=== PATIENT | female | born 1985 | race Caucasian/White ===

== ENCOUNTER 2016-10-02 12:27 | Emergency (ER) | payer OTHER ==
[2016-10-02 13:35] VITALS: BP 122/76
--- NOTE | 2016-10-02 14:05 | UC ---
Hip/Pelvis Pain - HPI Summary HPI Summary: Patient was hiking yesterday, took a large step and felt a severe sharp pain in the left groin. was unable to left leg appropriately and cannot place full weight on left leg, - History Of Current Complaint Chief Complaint: UCAbdominalPain Stated Complaint: GROIN PAIN Time Seen by Provider: 10/02/16 13:48 Hx Obtained From: Patient Hx Last Menstrual Period: 09/23/16 Onset/Duration: Sudden Onset, Lasting Hours Timing: Constant Severity Initially: Severe Severity Currently: Severe Pain Intensity: 9 Pain Scale Used: 0-10 Numeric Location: Discrete At: - left inguinal canal Character Of Pain: Sharp, Throbbing Aggravating Factor(s): Movement, Weight Bearing Alleviating Factor(s): Rest, Cold Associated Signs And Symptoms: Positive: Swelling, Other - lump - Risk Factors Septic Arthritis Risk Factor: Negative - Allergies/Home Medications Allergies/Adverse Reactions: Allergies Allergy/AdvReac Type Severity Reaction Status Date / Time No Known Allergies Allergy Verified 10/02/16 13:35 Home Medications: Home Medications Naproxen [Naproxen EC] 250 mg PO DAILY 10/02/16 [History Confirmed 10/02/16] PMH/Surg Hx/FS Hx/Imm Hx Previously Healthy: Yes - Surgical History Surgical History: Yes Surgery Procedure, Year, and Place: plastic surgery left arm 1988 d/t arm going through glass door - Family History Known Family History: Positive: None Negative: Hypertension - Social History Alcohol Use: None Substance Use Type: None Smoking Status (MU): Never Smoked Tobacco Review of Systems Constitutional: Negative Skin: Negative Eyes: Negative ENT: Negative Respiratory: Negative Cardiovascular: Negative Gastrointestinal: Negative Genitourinary: Negative Motor: Negative Neurovascular: Negative Musculoskeletal: Decreased ROM, Edema, Myalgia, Other: - abnormal gait Neurological: Negative Psychological: Negative All Other Systems Reviewed And Are Negative: Yes Physical Exam Triage Information Reviewed: Yes Appearance: Well-Appearing, Well-Nourished, Pain Distress Vital Signs: Initial Vital Signs Temp 98.7 F 10/02/16 13:24 Pulse 92 10/02/16 13:24 Resp 18 10/02/16 13:24 BP 122/76 10/02/16 13:24 Vital Signs Reviewed: Yes Eye Exam: Normal Eyes: Positive: Conjunctiva Clear ENT Exam: Normal ENT: Positive: Normal ENT inspection, Hearing grossly normal, Pharynx normal Dental Exam: Normal Neck exam: Normal Neck: Positive: Supple, Nontender, No Lymphadenopathy Respiratory Exam: Normal Respiratory: Positive: Chest non-tender, Lungs clear, Normal breath sounds Cardiovascular Exam: Normal Cardiovascular: Positive: RRR, No Murmur, Pulses Normal Abdomen Description: Positive: No Organomegaly, Hernia @ - left inguinal canal, Other: - abdomen is soft, nondistended, no rebound tenderness, palpation of left groin, painful lump noted Bowel Sounds: Positive: Present Musculoskeletal: Positive: Strength Limited @ - left leg, ROM Limited @ - left hip flx and ext Neurological Exam: Normal Neurological: Positive: Alert, Muscle Tone Normal Psychological Exam: Normal Skin Exam: Normal Hip Injury Course/Dx - Course Course Of Treatment: history obtained, exam performed, ice applied, unable to attempt reduction due to pain. - Differential Dx/Diagnosis Differential Diagnosis/HQI/PQRI: Contusion, Dislocation, Sprain, Strain Provider Diagnoses: left inguinal pain,. hernia. abnormal gait - Physician Notification/Consults Discussed Patient Care With: dr Scott [facility] ER Instructed by Provider To: Will See In ED Discharge - Discharge Plan Condition: Stable Disposition: [facility]
== END 2016-10-02 14:15 | disposition left against medical advice (07) ==
LOC: UCCORT 12:27
DX: R10.9 Unspecified abdominal pain (principal); K46.9 Unspecified abdominal hernia without obstruction or gangrene; R26.9 Unspecified abnormalities of gait and mobility
CPT/HCPCS: 99213; G0463

== ENCOUNTER 2017-09-28 15:01 | Emergency (ER) | payer OTHER ==
[2017-09-28 17:01] VITALS: BP 127/81
--- NOTE | 2017-09-28 17:28 | UC ---
Upper Extremity HPI - HPI Summary HPI Summary: right arm pain x 2 weeks s/p rotator cuff surgery 9 months ago , been having right arm pain , some tightness at the right elbow no redness, no swelling - History of Current Complaint Chief Complaint: UCUpperExtremity Stated Complaint: RIGHT ARM INJURY Time Seen by Provider: 09/28/17 16:52 Hx Obtained From: Patient Hx Last Menstrual Period: 09/03/17 ?: No Onset/Duration: Gradual Onset, Lasting Weeks - 2 weeks, Still Present Pain Intensity: 4 Pain Scale Used: 0-10 Numeric Location Of Pain: Is Discrete @ - right arm Character: Aching, Stiffness Aggravating Factor(s): Movement, Lifting, Flexion, Extension Alleviating Factor(s): Nothing Associated Signs And Symptoms: Positive: Numbness/Tingling - right arm. Negative: Swelling, Redness, Bruising, Fever, Weakness - Allergies/Home Medications Allergies/Adverse Reactions: Allergies Allergy/AdvReac Type Severity Reaction Status Date / Time surgical tape Allergy Rash Uncoded 09/28/17 17:02 Home Medications: Home Medications ALPRAZolam TAB* [Xanax TAB*] 0.25 mg PO Q8H PRN 09/28/17 [History Confirmed ] PARoxetine HCL TAB* [Paxil TAB*] 10 mg PO DAILY 09/28/17 [History Confirmed ] PMH/Surg Hx/FS Hx/Imm Hx Previously Healthy: Yes - Surgical History Surgical History: Yes Surgery Procedure, Year, and Place: plastic surgery left arm 1988 d/t arm going through glass door, right rct 2016 - Family History Known Family History: Positive: None Negative: Hypertension - Social History Alcohol Use: None Substance Use Type: None Smoking Status (MU): Never Smoked Tobacco Review of Systems Constitutional: Negative Skin: Negative Eyes: Negative ENT: Negative Respiratory: Negative Is Patient Immunocompromised?: No All Other Systems Reviewed And Are Negative: Yes Physical Exam Triage Information Reviewed: Yes Appearance: Well-Appearing, No Pain Distress, Well-Nourished Vital Signs: Initial Vital Signs Temp 99.2 F 09/28/17 16:47 Pulse 99 09/28/17 16:47 Resp 20 09/28/17 16:47 BP 127/81 09/28/17 16:47 Vital Signs Reviewed: Yes Eyes: Positive: Conjunctiva Clear ENT: Positive: Normal ENT inspection, Hearing grossly normal, Pharynx normal, Pharyngeal erythema Neck: Positive: Supple, Nontender, No Lymphadenopathy Respiratory Exam: Normal Respiratory: Positive: Chest non-tender, Lungs clear, Normal breath sounds Cardiovascular: Positive: RRR, No Murmur, Pulses Normal Musculoskeletal: Positive: Other: - right arm : no swelling, no erythema, good ROM on flexion and extension , + pain with flexion and extension , + tenderness at the elbow Upper Extremity Course/Dx - Differential Dx/Diagnosis Provider Diagnoses: right arm pain Discharge - Discharge Plan Condition: Stable Disposition: HOME Patient Education Materials: Arm Pain (ED) Referrals: Hannah Rogers MD [Primary Care Provider] - Additional Instructions: follow up with your orthopedics on Sunday arm sling for comfort
== END 2017-09-28 17:21 | disposition home or self-care (01) ==
LOC: UCCORT 15:01
DX: M25.531 Pain in right wrist (principal); Z98.890 Other specified postprocedural states; Z91.048 Other nonmedicinal substance allergy status
CPT/HCPCS: 99212; G0463

== ENCOUNTER 2018-01-07 06:31 | Day surgery (SDC) | payer OTHER ==
[~2018-01-07 06:31] MED LIST: Buffered Lidocaine 0.9% SYRIN* 5 ML/SYR SYRINGE INTRADERM ONE; DiMENhydriNATE IV* 50 MG/ML VIAL IV PUSH PRN; Famotidine TAB* 20 MG ONE; Famotidine TAB* 20 MG PO ONE; Gabapentin CAP(*) 300 MG ONE; Gabapentin CAP(*) 300 MG PO ONE; Morphine INJ* 2 MG/ML 1 ML CARPUJECT IV PRN; Naloxone* 0.4 MG/ML 1 ML VIAL IV PRN; PROCHLORPERAZINE INJ 5 MG/ML 2 ML VIAL IV PRN; Scopolamine 1.5 mg* PATCH ONE; Scopolamine 1.5 mg* PATCH TRANSDERM ONE; fentaNYL* 50 MCG/ML 2 ML VIAL (100 MCG VIAL) IV PRN; oxyCODONE/Acetamin 5/325 MG* TAB PO PRN
[2018-01-07] MEDS ORDERED: ceFAZolin 2 GM PREMIX (*) 2 GM/50 ML BAG IVPB ONE (06:42)
[2018-01-07] MEDS ORDERED: Bupivacaine 0.25% SDV* 30 ML ONE ×2 (06:56→06:57)
[2018-01-07] MEDS ORDERED: fentaNYL* 50 MCG/ML 2 ML VIAL (100 MCG VIAL) ONE ×2 (06:59→08:45)
[2018-01-07] MEDS ORDERED: Midazolam* 1 MG/ML 5 ML VIAL (5 MG) ONE (07:00)
[2018-01-07] MEDS ORDERED: Ondansetron INJ* 2 MG/ML VIAL ONE (08:30)
[2018-01-07] MEDS ORDERED: PROCHLORPERAZINE INJ 5 MG/ML 2 ML VIAL ONE (08:30)
[2018-01-07] MEDS ORDERED: Lidocaine 2% PF * 5 ML VIAL ONE (08:30)
[2018-01-07] MEDS ORDERED: Ketorolac INJ* 30 MG/ML 1 ML VIAL ONE (08:30)
[2018-01-07] MEDS ORDERED: Dexamethasone IV* 4 MG/ML 1 ML (4 MG) ONE (08:30)
[2018-01-07] MEDS ORDERED: Propofol* 10 MG/ML 20 ML BTL IV PUSH ONE (08:30)
[2018-01-07 10:44] VITALS: BP 106/66
--- NOTE | 2018-01-07 13:06 | OP ---
OPERATIVE REPORT: DATE OF OPERATION: 01/07/18 DATE OF : 81 SURGEON: Raffaele Pichardo MD. MORTAR CARRIER: JALEESA Gamboa. ANESTHESIOLOGIST: Dr. Watkins. ANESTHESIA: General; interscalene block. PRE-OP DIAGNOSIS: Right shoulder possible retear of a rotator cuff repair with biceps tendinitis and symptomatic hardware. POST-OP DIAGNOSIS: Full thickness retear of the rotator cuff. OPERATIVE PROCEDURES: Right shoulder arthroscopy with: 1. Glenohumeral debridement. 2. Revision rotator cuff repair, double-row. 3. Subpectoral biceps tenodesis. 4. Revision subacromial decompression with acromioplasty. 5. Removal of deep suture in fascia through a separate incision. COMPLICATIONS: None. ESTIMATED BLOOD LOSS: Minimal. IMPLANTS USED: Two 4.75 Healicoil, two MultiFIX and one 2.8-mm Q-Fix. INDICATIONS: Alena Jordan is a 32-year-old female who underwent previous rotator cuff repair by Dr. Victor about a year ago. She has had persistent issues since that time and had persistent pain. She was seeing me for a second opinion and we determined that she had a partial thickness tear but was unable to determine if it was a full thickness tear. We talked about the risks and benefits of surgery versus nonoperative treatment. Risks included but are not limited to, bleeding, infection, damage to nerves, vessels, surrounding structures, wound nonhealing, persistent pain, need for further surgery, scarring, stiffness, incomplete relief of symptoms and risk of anesthesia. DESCRIPTION OF PROCEDURE: The patient was greeted in the preoperative area by the attending surgeon. The correct extremity was marked and consent was confirmed. She underwent interscalene nerve block by the anesthesiologist, after which she was then brought back to the operating suite, she was placed in the supine position on the operating table. She underwent general anesthesia with endotracheal intubation. She was then placed in the left lateral decubitus position with bony prominences padded. She was secured with a peg board. The right shoulder was then prepped and draped in the usual sterile fashion beginning with chlorhexidine soap, scrub and alcohol wipe and a final prep with Betadine due to possible CHLORAPREP allergy. The right shoulder was draped in 10 pounds of traction unsterile. After appropriate surgical pause indicating side, site, and procedure and administration of antibiotics, the standard posterolateral portal was made sharply with an 11-blade. Scope was introduced into the joint and the joint was examined. There were grade 0 changes to the glenohumeral joint. The inferior recess was intact but the anterior posterior labrum had mild fraying, there was evidence of disruption of the rotator cable and a high-grade partial thickness tear. The superior labrum had some mild fraying with type 1 superior labral tear but the biceps was taken through range of motion. She had abundant synovitis along the groove and based on preoperative stiffness it was determined to do a biceps tenodesis. The subscap was intact. The rotator cuff was then marked using an 0 PDS suture. The suture quality was quite poor. The scope was positioned in the subacromial space. There was evidence of full thickness tear that was present at this point. The sutures had come undone. Superior to it had been a PASTA type repair or rather a suture tape that was placed into the lateral anchor. The suture was then cut and carefully removed. The rotator cuff was then prepared and debrided back to find good, well bleeding tissue. The greater tuberosity was then skeletonized using electrocautery device. At this point, attention was directed to the acromioplasty. There was abundant scar that had built up under the distal suture including under the deltoid and this was carefully released using electrocautery device to preserve the deltoid muscle and the deltoid insertion. A 4-0 oval marco a was used to do a revision decompression and there was still a spur that was present. All fluid and debris was removed and attention was directed to the rotator cuff. The 4-0 oval marco a was used to decorticate the greater tuberosity. Two anchors were placed through separate stab incisions, 4.75 Healicoil was placed with excellent purchase. She had very good quality bone. These sutures were then passed through the tendon in a horizontal mattress configuration. They were then tied down. The anterior strand of each anchor was then passed through and a MultiFIX suture was placed on the lateral border anteriorly and the remaining sutures were passed through another MultiFIX anchor which were then placed posteriorly but laterally. This allowed for excellent presybeterian of the rotator cuff as well as compression of the footprint. Final images were obtained and attention was directed to the next portion. A 15-blade was used to make a separate incision over her previous deltoid incision. Approximately 2 cm of the distal aspect of the incision was exposed. The soft tissues were carefully dissected to expose the symptomatic suture that was present. This appeared to be a white, nonabsorbable suture. This was then carefully removed in its entirety with care to not disrupt the deltoid fibers. Again this was removed through a separate incision. Attention was directed to the biceps. The bed was air planed to the right side. The anterior aspect of the shoulder was prepped again using alcohol. The 15 blade was used to make an incision in line with the biceps tendon and cut through the inferior two thirds of the pec. The soft tissue was carefully dissected and the pec was identified and then elevated. Remainder of the dissection was done bluntly. Biceps was then brought through the groove. There was abundant erythema and irritation proximally along the biceps. The groove was then prepared in the usual fashion using the electrocautery device, the red ball rasp as well as the osteotome. This allowed for good bony bleeding bed. The Q-Fix guide was then used to drill unicortically and the Q- Fix was deployed with excellent purchase. Sutures were then passed through the tendon in a Eric-Galdino type configuration. The excess stump was then excised and then the biceps was then shoveled into the wound. Wounds were copiously irrigated with sterile saline. All the wounds were copiously irrigated. The anterior wound was closed in layers with 2-0 Vicryl and 3-0 Monocryl. The remaining portal incisions were closed with 3-0 nylon in an interrupted fashion. Final dressings were applied. The anterior wound was injected with 20 cc of 0.25% Marcaine plain. Cryo/Cuff and UltraSling were placed . She was then awoken from anesthesia and transferred to PACU in stable condition. POSTOPERATIVE PLAN: She will be nonweightbearing. She will be in the sling for 6 weeks. She will be discharged on pain medications and antibiotics. Physical therapy will start at 4 weeks. DVT prophylaxis was considered, but deferred due to no previous personal or family history. I will see the patient back in about 14 days. [id number]/[facility] #: [id number] MTDD
[2018-01-08] MEDS ORDERED: Scopolamine PATCH Remove* 1 NOTE MISC PATCH OFF ONE (06:00)
== END 2018-01-07 10:37 | disposition home or self-care (01) ==
LOC: OREAST 06:31
PROVIDERS: ATTEND Orthopaedic Surgery
DX: S46.011D Strain of muscle(s) and tendon(s) of the rotator cuff of right shoulder, subsequent encounter (principal); M75.21 Bicipital tendinitis, right shoulder; F41.9 Anxiety disorder, unspecified; Z79.899 Other long term (current) drug therapy; X58.XXXD Exposure to other specified factors, subsequent encounter; G89.18 Other acute postprocedural pain
CPT/HCPCS: 81025; A9270-GY; C1713; C1776; J0690; J0780; J1100; J1885; J2250; J2405; J2704; J3010

== ENCOUNTER 2018-06-05 21:02 | Emergency (ER) | payer MEDICAID, OTHER ==
[2018-06-05 22:02] VITALS: BP 113/63
[2018-06-05] MEDS ORDERED: Ibuprofen TAB* 600 MG PO ONE (22:28)
--- NOTE | 2018-06-05 22:30 | UC ---
Lower Extremity/Ankle HPI - HPI Summary HPI Summary: 32 year old female here with a complaint of right foot pain. Pain started this morning while walking. No known other trauma. The top of the midfoot is most painful. Walking and weightbearing makes it worse. Rest improves it. She has not been wearing any new shoes. No new activities. - History of Current Complaint Chief Complaint: UCLowerExtremity Stated Complaint: RIGHT FOOT INJURY Time Seen by Provider: 06/05/18 21:58 Hx Last Menstrual Period: 05/16/18 Pain Intensity: 6 - Allergies/Home Medications Allergies/Adverse Reactions: Allergies Allergy/AdvReac Type Severity Reaction Status Date / Time surgical tape Allergy Rash Uncoded 06/05/18 21:53 PMH/Surg Hx/FS Hx/Imm Hx Previously Healthy: Yes - Surgical History Surgical History: Yes Surgery Procedure, Year, and Place: plastic surgery left arm 1988 d/t arm going through glass door, right rct 2017 -[facility]ICE - Family History Known Family History: Positive: None Negative: Hypertension - Social History Alcohol Use: None Substance Use Type: None Smoking Status (MU): Former Smoker Amount Used/How Often: SOCIAL X 5-6 YRS When Did the Patient Quit Smoking/Using Tobacco: 2011 Review of Systems Constitutional: Negative Skin: Other - There is some erythema on top of the right foot Eyes: Negative ENT: Negative Respiratory: Negative Cardiovascular: Negative Gastrointestinal: Negative Motor: Other - Pain with range of motion of the right foot Neurovascular: Negative Musculoskeletal: Other: - See history of present illness Neurological: Negative Psychological: Negative Is Patient Immunocompromised?: No All Other Systems Reviewed And Are Negative: Yes Physical Exam Triage Information Reviewed: Yes Appearance: Well-Appearing, No Pain Distress, Well-Nourished Vital Signs: Initial Vital Signs Temp 98 F 06/05/18 21:54 Pulse 79 06/05/18 21:54 Resp 18 06/05/18 21:54 BP 113/63 06/05/18 21:54 Pulse Ox 100 06/05/18 21:54 Vital Signs Reviewed: Yes Eye Exam: Normal Eyes: Positive: Conjunctiva Clear Neck exam: Normal Neck: Positive: Supple Respiratory: Positive: No respiratory distress Musculoskeletal: Positive: Other: - Right foot is tender in the midfoot. The ankle is nontender. Normal capillary refill normal pulses no sensation deficit. No skin break. Neurological Exam: Normal Neurological: Positive: Alert, Muscle Tone Normal Psychological Exam: Normal Psychological: Positive: Normal Response To Family, Age Appropriate Behavior Skin: Positive: Other - There is an area of erythema on the dorsum of the midfoot Lower Extremity Course/Dx - Course Course Of Treatment: Review the x-rays with the patient. I do not see any fracture on x-ray. Radiologist reading is pending. The plan is Jabari wrap and a postop shoe and follow-up with her primary care doctor. - Differential Dx/Diagnosis Provider Diagnoses: Right foot sprain Discharge - Sign-Out/Discharge Documenting (check all that apply): Patient Departure All imaging exams completed and their final reports reviewed: No - Discharge Plan Condition: Stable Disposition: HOME Patient Education Materials: Foot Sprain (ED) Referrals: Jaiden Jordan MD [Primary Care Provider] - Additional Instructions: FOLLOW UP WITH YOUR DOCTOR. GET RECHECKED FOR ANY WORSENING OF YOUR CONDITION OR QUESTIONS OR CONCERNS. - Billing Disposition and Condition Condition: STABLE Disposition: Home
--- NOTE | 2018-06-06 07:29 | RAD ---
INDICATION: Right foot injury. TECHNIQUE: 3 views of the right foot were obtained. FINDINGS: The bones are in normal alignment. No fracture is seen. Joint spaces appear maintained. IMPRESSION: NO EVIDENCE FOR FRACTURE. R0
--- NOTE | 2018-06-06 20:43 | UC ---
- Progress Note Progress Note: Patient Name: CYNDI MURPHY Medical Record#: [id number] Ordering Physician: Matty Oakley MD Acct.#: [id number] : 1985 Age: 32 Sex: F Location: [facility] Exam Date: 06/05/182199 ADM Status: [facility] ER Order Information: FOOT RIGHT 3+ VWS Accession Number: [id number] CPT: 55898 INDICATION: Right foot injury. TECHNIQUE: 3 views of the right foot were obtained. FINDINGS: The bones are in normal alignment. No fracture is seen. Joint spaces appear maintained. IMPRESSION: NO EVIDENCE FOR FRACTURE. R0 <Electronically signed by Ahmet Priest MD in OV> 06/06/18725 Dictated By: Ahmet Priest MD Dictated Date/Time: 06/06/18725 Transcribed Date/Time: 06/06/18723 Copy to: CC:Jaiden Jordan MD; Matty Oakley MD Imaging - [facility] Imaging - [facility] [place] [address] [address] ph ([phone]) ph ([phone]) ph ([phone]) This report is only to be considered final once signed by the Provider(s) as displayed in the "<Electronically Signed by >" field (s). Absence of a signature indicates the report is in a draft status and still needs to be finalized. In the event this document was created by someone other than the signing Provider, the individual initiating the document will be listed in the "Entered by:" or "Dictated by:" ramirez. 1 of 1 Discharge - Sign-Out/Discharge Documenting (check all that apply): Post-Discharge Follow Up All imaging exams completed and their final reports reviewed: Yes - Discharge Plan Condition: Stable Disposition: HOME Patient Education Materials: Foot Sprain (ED) Referrals: Jaiden Jordan MD [Primary Care Provider] - Additional Instructions: FOLLOW UP WITH YOUR DOCTOR. GET RECHECKED FOR ANY WORSENING OF YOUR CONDITION OR QUESTIONS OR CONCERNS. - Billing Disposition and Condition Condition: STABLE Disposition: Home
== END 2018-06-05 22:42 | disposition home or self-care (01) ==
LOC: UCCORT 21:02
DX: S93.601A Unspecified sprain of right foot, initial encounter (principal); X58.XXXA Exposure to other specified factors, initial encounter; Y93.01 Activity, walking, marching and hiking; Y92.9 Unspecified place or not applicable; Z91.048 Other nonmedicinal substance allergy status; Z87.891 Personal history of nicotine dependence
CPT/HCPCS: 99213; A9270-GY; G0463

== ENCOUNTER 2018-09-16 18:10 | Emergency (ER) | payer OTHER ==
--- OUTSIDE RECORDS SUMMARY | 2018-09-16 18:17 | XMS REPORT | Continuity of Care Document ---
:1985 External Reference #:[id number] Author Name Ammon Sorensen Care Team Providers Name Role Phone Jaiden Jordan M.D. Primary Care Physician Unavailable Payers Type Date Identification Numbers Payment Provider Subscriber Policy Number: [id number] Marshal Jordan PayID: [id number] [address] [place] [address] Advance Directives Description No Information Available Problems Date Description Provider Status Onset: 12/13/2017 Injury of shoulder region Raffaele Pichardo MD Active Onset: 12/13/2017 Disorder of shoulder Raffaele Pichardo MD Active Onset: 05/02/2018 Adhesive capsulitis of shoulder Raffaele Pichardo MD Active Family History Description No Information Available Social History Type Date Description Comments Sex Unknown Lives With Son Occupation Unemployed ETOH Use Denies alcohol use Tobacco Use Start: Unknown Patient has never smoked Smoking Status Reviewed: 08/29/18 Patient has never smoked Exercise Type/Frequency Exercises regularly Allergies, Adverse Reactions, Alerts Description No Known Drug Allergies Medications Medication Date Status Form Strength Qnty SIG Indications Ordering Provider Medrol 08/29/ Active TBPK 4mg 21unit take as S46.011D Raffaele 2017 s lucien Alexander MD packaging Alprazolam / Active Tablets 0.25mg one by Unknown 0000 mouth up to three times daily as needed for anxiety Paroxetine HCL / Active Tablets 10mg 1 by mouth Unknown 0000 every day Gabapentin / Active Capsules 300mg 1 cap by Unknown 0000 mouth in the am and 2 caps by mouth in the evening Acetaminophen-Cod / Active Tablets 300-15mg take one Unknown eine #2 0000 tab every 4-6 hours as needed for pain Medrol 05/02/ Hx TBPK 4mg 21unit take as S46.011D Raffaele 2018 - s directed Kylee, 06/02/ by 2017 packaging Cyclobenzaprine 01/22/ Hx Tablets 10mg 30tabs take 1 tab S46.011D Zaneb HCL 2017 - at night Kylee, 02/19/ as needed 2017 for pain/muscl e spasms Oxycodone HCL 01/07/ Hx Tablets 5mg 40tabs 1-2 tabs Zaneb 2018 - by mouth Kylee, 02/19/ every 4-6 MD 2017 hours as needed Cephalexin 01/07/ Hx Tablets 500mg 12tabs take 1 by Raffaele 2017 - mouth four Kylee, 02/19/ times a 2017 day x 3 days Oxycodone HCL / Hx Capsules 5mg 1-2 tabs Unknown 0000 - by mouth 01/07/ every 4-6 2017 hours as needed pain Hydrocodone-Aceta / Hx Tablets 5-325mg 1 or 2 Unknown minophen 0000 - tabs by 01/22/ mouth 2018 every 6-8 hours as needed for pain Medications Administered in Office Medication Date Status Form Strength Qnty SIG Indications Ordering Provider Records Fee 05/15/20 Administered Injection Raffaele Pichardo MD Immunizations Description No Information Available Vital Signs Date Vital Result Comment 08/29/2018 11:06am Height 65 inches 5'5" Heart Rate 78 /min BP Systolic Sitting 108 mmHg BP Diastolic Sitting 78 mmHg Pain Level 8 06/27/2018 10:55am Height 65 inches 5'5" Weight 130.00 lb BP Systolic 112 mmHg BP Diastolic 64 mmHg Respiratory Rate 18 /min Pain Level 6 BMI (Body Mass Index) 21.6 kg/m2 05/02/2018 1:18pm Height 65 inches 5'5" Weight 130.00 lb BP Systolic 110 mmHg BP Diastolic 70 mmHg Respiratory Rate 18 /min Pain Level 3 BMI (Body Mass Index) 21.6 kg/m2 04/12/2018 10:46am Height 65 inches 5'5" Weight 130.00 lb BP Systolic 118 mmHg BP Diastolic 74 mmHg Respiratory Rate 18 /min Pain Level 8 BMI (Body Mass Index) 21.6 kg/m2 02/19/2018 10:07am Height 65 inches 5'5" Weight 130.00 lb BP Systolic 110 mmHg BP Diastolic 70 mmHg Respiratory Rate 18 /min Pain Level 1 BMI (Body Mass Index) 21.6 kg/m2 01/22/2018 1:05pm Height 65 inches 5'5" Weight 130.00 lb Heart Rate 103 /min 66 Respiratory Rate 16 /min Body Temperature 97.7 F Pain Level 4 BMI (Body Mass Index) 21.6 kg/m2 12/20/2017 11:37am Height 65 inches 5'5" Weight 130.00 lb Heart Rate 68 /min BP Systolic Sitting 100 mmHg BP Diastolic Sitting 64 mmHg Respiratory Rate 16 /min Pain Level 7 BMI (Body Mass Index) 21.6 kg/m2 12/13/2017 1:10pm Height 65 inches 5'5" Weight 130.00 lb Heart Rate 84 /min Respiratory Rate 16 /min Body Temperature 98.1 F Pain Level 7 BMI (Body Mass Index) 21.6 kg/m2 Results Description No Information Available Procedures Date Code Description Status 01/07/2018 41225 Arthroscopy Shoulder,W/Rotator Cuff Repair Completed 01/07/2018 80571 Arthroscopy Shoulder,W/Rotator Cuff Repair Completed 01/07/2018 12720 Arthroscopy,Shoulder Decompression Of Subacromial Space Completed W/Acromio 01/07/2018 31568 Arthroscopy,Shoulder Decompression Of Subacromial Space Completed W/Acromio 01/07/2018 53490 Tenodesis Biceps Long Tendon Completed 01/07/2018 98791 Tenodesis Biceps Long Tendon Completed 01/07/2018 86443 Remove Foreign Body Muscle/Tendon Sheath Simple Completed 01/07/2018 57819 Remove Foreign Body Muscle/Tendon Sheath Simple Completed Encounters Type Date Location Provider Dx Diagnosis Office Visit 06/27/2018 Orthopedic Raffaele Pichardo MD S46.011D Strain of 10:[facility]a [facility] the rotator cuff of right shoulder, subs S46.101D Unsp injury of maria g/fasc/tend long hd bicep, right arm, subs M75.01 Adhesive capsulitis of right shoulder Office Visit 05/02/2018 1:30p Orthopedic Raffaele Pichardo S46.011D Strain of [facility] rotator cuff of right shoulder, subs S46.101D Unsp injury of maria g/fasc/tend long hd bicep, right arm, subs M75.01 Adhesive capsulitis of right shoulder Office Visit 04/12/2018 10:45a Orthopedic Zaneb Yaseen, S46.011D Strain of [facility] rotator cuff of right shoulder, subs S46.101D Unsp injury of musc/fasc/tend long hd bicep, right arm, subs S46.111D Strain of musc/fasc/tend long hd bicep, right arm, subs Office Visit 12/20/2017 11:30a Orthopedic Raffaele Pichardo, S46.011D Strain of [facility] rotator cuff of right shoulder, subs S46.101A Unsp injury of musc/fasc/tend long hd bicep, right arm, init S46.111D Strain of musc/fasc/tend long hd bicep, right arm, subs Office Visit 12/13/2017 1:00p Orthopedic Raffaele Pichardo, S46.011D Strain of [facility] rotator cuff of right shoulder, subs S46.101A Unsp injury of musc/fasc/tend long hd bicep, right arm, init M54.12 Radiculopathy, cervical region S46.111A Strain of musc/fasc/tend long hd bicep, right arm, init S46.011A Strain of tessy the rotator cuff of right shoulder, init Plan of Treatment Future Appointment(s):10/10/2018 10:45 am - Raffaele Pichardo MD at [facility]08/29/2018 - Raffaele Pichardo MDS46.011D Strain of muscle(s) and tendon(s) of the rotator cuff of rigNew Medication:Medrol 4 mg - take as directed by packagingNew Therapy:Physical TherapyFollow up:Follow up: 6 ikuutK82.101D Unspecified injury of muscle, fascia and tendon of long head
[2018-09-16 19:00] VITALS: BP 116/89
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
== END 2018-09-16 19:27 | disposition home or self-care (01) ==
LOC: UCCORT 18:10
DX: S01.81XD Laceration without foreign body of other part of head, subsequent encounter (principal); X58.XXXD Exposure to other specified factors, subsequent encounter; Z51.89 Encounter for other specified aftercare; Z87.891 Personal history of nicotine dependence
CPT/HCPCS: 99212; G0463

== ENCOUNTER 2019-01-07 08:55 | Emergency (ER) | payer OTHER ==
[2019-01-07 09:18] VITALS: BP 110/67
--- NOTE | 2019-01-07 09:35 | UC ---
Throat Pain/Nasal Ajay HPI - HPI Summary HPI Summary: sore throat x 3 weeks no fever, no chills, denies any cold symptoms no pnd, no cough , ? burned the back of her throat by eating something hot - History of Current Complaint Chief Complaint: UCGeneralIllness Stated Complaint: ST Time Seen by Provider: 01/07/19 09:28 Hx Obtained From: Patient Hx Last Menstrual Period: 12/22/18 Onset/Duration: Gradual Onset, Lasting Weeks - 3, Still Present Severity: Moderate Pain Intensity: 5 Cough: None Associated Signs & Symptoms: Negative: Drooling, Wheezing, Hoarseness, Sinus Discomfort, Nasal Discharge, Fever, Vomiting - Allergies/Home Medications Allergies/Adverse Reactions: Allergies Allergy/AdvReac Type Severity Reaction Status Date / Time surgical tape Allergy Rash Uncoded 11/11/18 10:12 PMH/Surg Hx/FS Hx/Imm Hx Psychological History: Anxiety - Surgical History Surgical History: Yes Surgery Procedure, Year, and Place: plastic surgery left arm 1988 d/t arm going through glass door, right rct 2016,2017 -TWICE - Family History Known Family History: Positive: None Negative: Hypertension - Social History Alcohol Use: None Substance Use Type: None Smoking Status (MU): Never Smoked Tobacco Amount Used/How Often: SOCIAL X 5-6 YRS When Did the Patient Quit Smoking/Using Tobacco: 2011 - Immunization History Most Recent Tetanus Shot: 09/10/18 Review of Systems All Other Systems Reviewed And Are Negative: Yes Constitutional: Positive: Negative Skin: Positive: Negative Eyes: Positive: Negative ENT: Positive: Sore Throat Respiratory: Positive: Negative Cardiovascular: Positive: Negative Is Patient Immunocompromised?: No Physical Exam Triage Information Reviewed: Yes Appearance: Well-Appearing, No Pain Distress, Well-Nourished Vital Signs: Initial Vital Signs Temp 98.4 F 01/07/19 09:12 Pulse 67 01/07/19 09:12 Resp 16 01/07/19 09:12 BP 110/67 01/07/19 09:12 Pulse Ox 100 01/07/19 09:12 Vital Signs Reviewed: Yes Eye Exam: Normal Eyes: Positive: Conjunctiva Clear ENT: Positive: Normal ENT inspection, Hearing grossly normal, Pharynx normal, TM bulging. Negative: Pharyngeal erythema, Nasal congestion, Nasal drainage, TMs normal, Tonsillar swelling, Tonsillar exudate Neck: Positive: Supple, Nontender, No Lymphadenopathy Respiratory: Positive: Chest non-tender, Lungs clear, Normal breath sounds Cardiovascular: Positive: RRR, No Murmur, Pulses Normal Skin Exam: Normal Throat Pain/Nasal Course/Dx - Differential Dx/Diagnosis Provider Diagnosis: Pharyngitis Discharge - Sign-Out/Discharge Documenting (check all that apply): Patient Departure All imaging exams completed and their final reports reviewed: No Studies - Discharge Plan Condition: Stable Disposition: HOME Patient Education Materials: Pharyngitis (ED) Referrals: Jaiden Jordan MD [Primary Care Provider] - If Needed - Billing Disposition and Condition Condition: STABLE Disposition: Home
== END 2019-01-07 09:37 | disposition home or self-care (01) ==
LOC: UCCORT 08:55
DX: J02.9 Acute pharyngitis, unspecified (principal); F41.9 Anxiety disorder, unspecified; Z91.048 Other nonmedicinal substance allergy status
CPT/HCPCS: 99211; G0463

== ENCOUNTER 2019-03-29 20:26 | Emergency (ER) | payer OTHER ==
--- NOTE | 2019-03-29 20:37 | UC ---
Throat Pain/Nasal Ajay HPI - HPI Summary HPI Summary: 33 y/o female presents to the urgent care c/o sore throat w/ a dry cough and fatigue for the past 2 days. Pt reports symptoms started w/ hoarseness and a dry cough, then she felt fatigue. About 2 days she developed sore throat. pain w / swallowing is 4/10. She has taken Ibuprofen PO to alleviate symptoms. Pt denies fever, wheezing, SOB, chest pain,abdominal pain, N/V/D. - History of Current Complaint Stated Complaint: SORE THROAT/FATIGUE/COUGH Time Seen by Provider: 03/29/19 20:35 Hx Obtained From: Patient Hx Last Menstrual Period: 12/22/18 Onset/Duration: Gradual Onset, Lasting Weeks - 1 week w/ dry cough and hoarseness and fatigue, Still Present, Worse Since - 2 days ago w/ sore throat Severity: Moderate Pain Intensity: 4 - sore throat Pain Scale Used: 0-10 Numeric Cough: Nonproductive - dry Associated Signs & Symptoms: Positive: Hoarseness, Nasal Discharge - mild clear. Negative: Dysphagia, Wheezing, Sinus Discomfort, Fever, Vomiting, Rash - Epiglottits Risk Factors Epiglottis Risk Factors: Negative - Allergies/Home Medications Allergies/Adverse Reactions: Allergies Allergy/AdvReac Type Severity Reaction Status Date / Time surgical tape Allergy Rash Uncoded 03/29/19 20:34 PMH/Surg Hx/FS Hx/Imm Hx Previously Healthy: Yes Psychological History: Anxiety, Depression - Surgical History Surgical History: Yes Surgery Procedure, Year, and Place: plastic surgery left arm 1988 d/t arm going through glass door, right rct 2016,2017 -TWICE - Family History Known Family History: Positive: None - Pt denies PMHX Negative: Hypertension - Social History Occupation: Employed Full-time Lives: With Family Alcohol Use: None Substance Use Type: None Smoking Status (MU): Never Smoked Tobacco Amount Used/How Often: SOCIAL X 5-6 YRS When Did the Patient Quit Smoking/Using Tobacco: 2011 - Immunization History Most Recent Tetanus Shot: 09/10/18 Review of Systems All Other Systems Reviewed And Are Negative: Yes Constitutional: Positive: Fatigue Skin: Positive: Negative Eyes: Positive: Negative ENT: Positive: Sore Throat, Nasal Discharge - clear, Other - mild clear pND Respiratory: Positive: Cough - dry Cardiovascular: Positive: Negative Gastrointestinal: Positive: Negative Genitourinary: Positive: Negative Motor: Positive: Negative Neurovascular: Positive: Negative Musculoskeletal: Positive: Negative Neurological: Positive: Negative Psychological: Positive: Negative Is Patient Immunocompromised?: No Physical Exam - Summary Physical Exam Summary: VITAL SIGNS: Reviewed. GENERAL: Patient is a well developed and nourished female who is sitting comfortable in the examining table. Patient is not in any acute respiratory distress. HEAD AND FACE: No signs of trauma. No ecchymosis, hematomas or skull depressions. No sinus tenderness. EYES: PERRLA, EOMI x 2, No injected conjunctiva, no nystagmus. No photophobia. EARS: Hearing grossly intact. Ear canals and tympanic membranes are within normal limits. MOUTH: Positive pharynx with erythema, exudates, mild palatal petechiae. Mild B /L tonsillar enlargement with exudate. Uvula in midline. clear PND NECK: Supple, trachea is midline, Positive anterior cervical lymphadenopathy, no JVD, no carotid bruit, no c-spine tenderness, neck with full ROM. No meningeal signs, no Kernig's or brudzinskis signs. CHEST: Symmetric, no tenderness at palpation LUNGS: Clear to auscultation bilaterally. No wheezing or crackles. CVS: Regular rate and rhythm, S1 and S2 present, no murmurs or gallops appreciated. ABDOMEN: Soft, non-tender. No signs of distention. No rebound no guarding, and no masses palpated. Bowel sounds are normal. EXTREMITIES: FROM in all major joints, no edema, no cyanosis or clubbing. NEURO: Alert and oriented x 3. No acute neurological deficits. Speech is normal and follows commands. SKIN: Dry and warm Triage Information Reviewed: Yes Throat Pain/Nasal Course/Dx - Course Course Of Treatment: 33 y/o female presents to the urgent care c/o sore throat w/ a dry cough and fatigue for the past 2 days. Pt reports symptoms started w/ hoarseness and a dry cough, then she felt fatigue. About 2 days she developed sore throat. pain w / swallowing is 4/10. She has taken Ibuprofen PO to alleviate symptoms. Pt denies fever, wheezing, SOB, chest pain,abdominal pain, N/V/D. Hx obtained. Pt w / pharyngitis and laryngitis on examination. Rapid strep ordered, result: negative. Viral pharyngitis.Pt advised to take ibuprofen PO or Naproxen she has at home to alleviates symptoms of pain and swelling. Advised on hand washing to avoid spreading and rest her voice. Pt advised to rest, eat well and avoid strenuous exercise. If symptoms do not improve or worsen advised to return to the urgent care or f/u with her PCP for further evaluation and treatment. D/C instructions explained. Pt understood and agreed w/ plan of care. - Differential Dx/Diagnosis Differential Diagnosis/HQI/PQRI: Laryngitis, Mononucleosis, Peritonsillar Abscess, Pharyngitis, Sinusitis, Tonsillitis Provider Diagnosis: Acute viral pharyngitis, Laryngitis Discharge - Sign-Out/Discharge Documenting (check all that apply): Patient Departure - D/C home All imaging exams completed and their final reports reviewed: No Studies - Discharge Plan Condition: Stable Disposition: HOME Patient Education Materials: Pharyngitis (ED) Forms: *Work Release Referrals: Jaiden Jordan MD [Primary Care Provider] - 3 Days Additional Instructions: 1-Please take ibuprofen PO q6-8hrs prn as instructed after meals to alleviate pain and swelling. Increase fluid intake, eat well, rest and avoid strenuous exercise 2-If symptoms do not improve or worsen please return to the urgent care or f/u with your PCP in 3 days for further evaluation and treatment. - Billing Disposition and Condition Condition: STABLE Disposition: Home - Attestation Statements Provider Attestation: patient not seen by me I was available for consult
[2019-03-29 20:40] VITALS: BP 121/66
== END 2019-03-29 21:01 | disposition home or self-care (01) ==
LOC: UCCORT 20:26
DX: J32.9 Chronic sinusitis, unspecified (principal); J03.90 Acute tonsillitis, unspecified; Z87.891 Personal history of nicotine dependence
CPT/HCPCS: 87651; 99211; G0463

== ENCOUNTER 2019-11-22 13:30 | Emergency (ER) | payer OTHER ==
[2019-11-22 15:12] VITALS: BP 95/57
--- NOTE | 2019-11-22 15:25 | UC ---
Respiratory Complaint HPI - HPI Summary HPI Summary: C/O congestion, off/on sore throat, cough, worse at night with wheezing, for the last 5-6 days. No sinus pain - History of Current Complaint Chief Complaint: UCRespiratory Stated Complaint: COUGH,SINUS Time Seen by Provider: 11/22/19 15:14 Hx Obtained From: Patient Hx Last Menstrual Period: "end of last month" ?: No Onset/Duration: Sudden Onset, Lasting Days - 6, Still Present Timing: Constant Severity Initially: Moderate Severity Currently: Moderate Pain Intensity: 0 Character: Cough: Nonproductive Aggravating Factors: Deep Breaths, Recumbent Position Alleviating Factors: Bronchodilator Associated Signs And Symptoms: Positive: Wheezing, URI, Nasal Congestion. Negative: Fever, Chills, Sinus Discomfort Related History: Seasonal Allergies - Allergies/Home Medications Allergies/Adverse Reactions: Allergies Allergy/AdvReac Type Severity Reaction Status Date / Time No Known Allergies Allergy Verified 11/22/19 15:09 Home Medications: Home Medications PARoxetine HCL TAB* [Paxil TAB*] 20 mg PO QPM 09/28/17 [History Confirmed ] predniSONE 20 mg TAB [Deltasone 20 MG TAB*] 60 mg PO DAILY #18 tab 11/22/19 [Rx] PMH/Surg Hx/FS Hx/Imm Hx Previously Healthy: Yes - Surgical History Surgical History: Yes Surgery Procedure, Year, and Place: plastic surgery left arm 1988 d/t arm going through glass door, right rotator cuff 2016,2017 -TWICE - Family History Known Family History: Positive: None - Pt denies PMHX Negative: Hypertension, Diabetes - Social History Occupation: Employed Full-time Lives: With Family Alcohol Use: None Substance Use Type: None Smoking Status (MU): Former Smoker Amount Used/How Often: SOCIAL X 5-6 YRS When Did the Patient Quit Smoking/Using Tobacco: 2011 - Immunization History Most Recent Tetanus Shot: 09/10/18 Review of Systems All Other Systems Reviewed And Are Negative: Yes Constitutional: Positive: Fatigue ENT: Positive: Sore Throat, Ear Ache - fullness, unable to "pop" ears. Respiratory: Positive: Cough Is Patient Immunocompromised?: No Physical Exam Triage Information Reviewed: Yes Appearance: No Pain Distress, Well-Nourished, Ill-Appearing - mild Vital Signs: Initial Vital Signs Temp 98.4 F 11/22/19 15:09 Pulse 76 11/22/19 15:09 Resp 16 11/22/19 15:09 BP 95/57 11/22/19 15:09 Pulse Ox 100 11/22/19 15:09 Vital Signs Reviewed: Yes Eyes: Positive: Conjunctiva Clear ENT: Positive: Pharynx normal, Nasal congestion, TMs normal Neck exam: Normal Respiratory: Positive: Wheezing - expiratory wheeze with coughing. Cardiovascular Exam: Normal Cardiovascular: Positive: RRR, No Murmur Musculoskeletal Exam: Normal Neurological Exam: Normal Psychological Exam: Normal Skin Exam: Normal Respiratory Course/Dx - Differential Dx/Diagnosis Differential Diagnosis/HQI/PQRI: Asthma, Bronchitis, Lower Resp Infection, Sinusitis Provider Diagnosis: Upper respiratory infection with cough and congestion, Bronchospasm, acute Discharge ED - Sign-Out/Discharge Documenting (check all that apply): Patient Departure All imaging exams completed and their final reports reviewed: No Studies - Discharge Plan Condition: Stable Disposition: HOME Prescriptions: predniSONE 20 mg TAB [Deltasone 20 MG TAB*] 60 mg PO DAILY #18 tab Patient Education Materials: Upper Respiratory Infection (ED), Bronchospasm (ED ) Referrals: Jaiden Jordan MD [Primary Care Provider] - Additional Instructions: NASAL SPRAYS AND DROPS: Afrin in the PUMP/ MIST bottle (Get generic 12 hours nasal decongestant spray). Tilt your head down and look at the floor while doing the spray, "nose to toes". Decongestant nasal sprays and drops often give dramatic relief from congestion. They are often recommended for patients with sinus infection to assist with sinus drainage. Persons with high blood pressure should consult the doctor before using these nasal sprays. Afrin and Silas-Synephrine are common [id number] preparations. They should not be used for more than five days, as "rebound" congestion can occur - - the congestion flares as the drug wears off. A way of dealing with this rebound congestion problem is to medicate only one nostril each time, allowing the other nostril to recover from the medicine' s effects. When you no longer need the drug during the day, spray only one nostril each night. This helps you sleep well without severe rebound congestion. Call the doctor if you develop severe headache, palpitations, or chest pain. - Billing Disposition and Condition Condition: STABLE Disposition: Home
== END 2019-11-22 15:37 | disposition home or self-care (01) ==
LOC: UCCORT 13:30
DX: J06.9 Acute upper respiratory infection, unspecified (principal); R05 Cough; J98.01 Acute bronchospasm; R09.89 Other specified symptoms and signs involving the circulatory and respiratory systems; Z87.891 Personal history of nicotine dependence
CPT/HCPCS: 99212; G0463